=== PATIENT | male | born 1960 | race Caucasian/White ===

== ENCOUNTER 2019-04-18 17:38 | Inpatient (IN) | payer MEDICAID ==
[~2019-04-18] VITALS: Ht 162.6 cm; Wt 63.5 kg
[2019-04-18 18:14] LABS: BASOPHILS 0.4 % (0-2); EOSINOPHILS 2.4 % (0-7); HEMATOCRIT 43.6 % (42.0-54.0); HEMOGLOBIN 15.1 g/dL (13.5-17.5); IMMATURE GRANULOCYTES 0.4 % (0-5); LYMPHOCYTES 22.2 % (15-50); MCH 31.1 pg (26.0-34.0); MCHC 34.6 g/dL (31.0-37.0); MCV 89.7 fL (80.0-100.0); MEAN PLATELET VOLUME 9.5 fL (7.4-10.4); MONOCYTES 10.1 % (2-11); NEUTROPHILS 64.5 % (40-80); PLATELET COUNT 308 10x3/uL (130-400); RBC 4.86 10x6/uL (4.20-6.10); RDW 13.3 % (11.5-14.5); WBC 7.8 10x3/uL (4.8-10.8)
--- NOTE | 2019-04-18 18:20 | NUR ---
PATIENT GIVEN A URINAL; STATES, "I AM NOT GOING TO BE ABLE TO GO RIGHT NOW."
[2019-04-18 18:35] LABS: APPEARANCE CLEAR (CLEAR); BILIRUBIN NEGATIVE (NEGATIVE); COLOR YELLOW (YELLOW); GLUCOSE NEGATIVE (NEGATIVE); KETONE NEGATIVE (NEGATIVE); NITRITE NEGATIVE (NEGATIVE); PROTEIN NEGATIVE (NEGATIVE); UROBILINOGEN NORMAL (NORMAL)
[2019-04-18 18:40] LABS: ALBUMIN 3.4 g/dL (3.4-5.0); ALKALINE PHOSPHATASE 89 U/L (46-116); ALT (SGPT) 17 U/L (10-68); AMYLASE - SERUM 200 U/L (25-115); BILIRUBIN - TOTAL 0.27 mg/dL (0.2-1.3); CALC OSMOLALITY 281 mosm/kg (275-300); CALCIUM 9.3 mg/dL (8.5-10.1); CARBON DIOXIDE 26.8 mmol/L (21.0-32.0); CHLORIDE - SERUM 106 mmol/L (98-107); GLUCOSE 95 mg/dL (74-106); LIPASE 1179 U/L (73-393); POTASSIUM - SERUM 3.9 mmol/L (3.5-5.1); SODIUM 141 mmol/L (136-145); UREA NITROGEN 14 mg/dL (7-18); eGFR NON AFRICAN AMERICAN 82 mL/min (90-120)
[2019-04-18 18:47] VITALS: BP 127/83
--- NOTE | 2019-04-18 19:26 | NUR ---
PT WANTED TO ADD CONTACT TO CHART: ROOMMATE PEYMAN [place]. PH [phone].
--- NOTE | 2019-04-18 19:41 | NUR ---
PT C/O PAIN TO IV SITE IN LEFT FOREARM WHEN FLUSHED BY CT STAFF. IV RECHECKED AND PATENT, HOWEVER, PT C/O PAIN WHEN RAPIDLY FLUSHED. SECOND IV ESTABLISHED IN RIGHT FOREARM FOR CT SCAN.
[2019-04-18 21:07] VITALS: BP 106/81
--- NOTE | 2019-04-18 21:33 | NUR ---
PT ARRIVED ON UNIT VIA WHEELCHAIR ESCORTED BY ADRI LEVY FROM ER. ASSISTED PT IN PUTTING ON A GOWN AND POSITIONED IN BED FOR COMFORT WITH A WARM BLANKET.
--- NOTE | 2019-04-18 21:45 | NUR ---
TELEMETRY PLACED ON PT PER ORDER...READING 46 SR AT THIS TIME.
[2019-04-18 22:22] VITALS: BP 120/70; BMI 24.0
--- NOTE | 2019-04-18 22:40 | NUR ---
ADMISSION ASSESSMENT AND HISTORY COMPLETE.
[2019-04-19 01:48] VITALS: BP 96/53
[2019-04-19 05:24] VITALS: BP 115/61
[2019-04-19 05:43] LABS: BASOPHILS 0.4 % (0-2); EOSINOPHILS 2.5 % (0-7); HEMATOCRIT 39.9 % (42.0-54.0); HEMOGLOBIN 13.3 g/dL (13.5-17.5); IMMATURE GRANULOCYTES 0.1 % (0-5); LYMPHOCYTES 21.2 % (15-50); MCH 30.2 pg (26.0-34.0); MCHC 33.3 g/dL (31.0-37.0); MCV 90.7 fL (80.0-100.0); MEAN PLATELET VOLUME 9.6 fL (7.4-10.4); MONOCYTES 10.1 % (2-11); NEUTROPHILS 65.7 % (40-80); PLATELET COUNT 283 10x3/uL (130-400); RDW 13.5 % (11.5-14.5); WBC 7.9 10x3/uL (4.8-10.8)
[2019-04-19 05:59] LABS: ALBUMIN 2.8 g/dL (3.4-5.0); ALKALINE PHOSPHATASE 70 U/L (46-116); ALT (SGPT) 15 U/L (10-68); CALC OSMOLALITY 282 mosm/kg (275-300); CALCIUM 8.1 mg/dL (8.5-10.1); CARBON DIOXIDE 26.5 mmol/L (21.0-32.0); CHLORIDE - SERUM 110 mmol/L (98-107); GLUCOSE 89 mg/dL (74-106); PHOSPHOROUS 3.1 mg/dL (2.5-4.9); POTASSIUM - SERUM 4.1 mmol/L (3.5-5.1); PROTEIN - SERUM 5.7 g/dL (6.4-8.2); SODIUM 142 mmol/L (136-145); UREA NITROGEN 14 mg/dL (7-18); eGFR NON AFRICAN AMERICAN 82 mL/min (90-120)
[2019-04-19 07:59] VITALS: BP 118/67
--- NOTE | 2019-04-19 09:25 | NUR ---
PT REQUESTED FOOD THIS MORNING, ADVISED HE IS ON CLEAR LIQUID AND WILL ASK DR WHEN ROUNDS ARE MADE, GAVE PT SPRITE AND BEEF BROTH, CONTINUE WITH PLAN OF CARE
[2019-04-19 10:20] LABS: AMYLASE - SERUM 141 U/L (25-115); LIPASE 543 U/L (73-393)
--- NOTE | 2019-04-19 12:00 | NUR ---
LYING IN BED,WITHOUT DISTRESS.CALL LIGHT IN REACH
[2019-04-19 14:43] VITALS: Ht 162.6 cm; Wt 63.5 kg
[2019-04-19 15:55] VITALS: BP 129/55
[2019-04-19 22:28] VITALS: BP 99/50
[2019-04-20] VITALS: BP 124/71
[2019-04-20 06:09] LABS: BASOPHILS 0.4 % (0-2); EOSINOPHILS 2.3 % (0-7); HEMATOCRIT 40.3 % (42.0-54.0); HEMOGLOBIN 13.3 g/dL (13.5-17.5); IMMATURE GRANULOCYTES 0.1 % (0-5); LYMPHOCYTES 19.9 % (15-50); MCH 29.8 pg (26.0-34.0); MCV 90.4 fL (80.0-100.0); MEAN PLATELET VOLUME 9.9 fL (7.4-10.4); MONOCYTES 9.9 % (2-11); NEUTROPHILS 67.4 % (40-80); PLATELET COUNT 270 10x3/uL (130-400); RBC 4.46 10x6/uL (4.20-6.10); RDW 13.4 % (11.5-14.5); WBC 8.3 10x3/uL (4.8-10.8)
[2019-04-20 06:13] VITALS: BP 120/72
[2019-04-20 06:31] LABS: ALBUMIN 2.9 g/dL (3.4-5.0); ALKALINE PHOSPHATASE 73 U/L (46-116); ALT (SGPT) 16 U/L (10-68); AMYLASE - SERUM 116 U/L (25-115); BILIRUBIN - TOTAL 0.44 mg/dL (0.2-1.3); CALC OSMOLALITY 282 mosm/kg (275-300); CALCIUM 8.8 mg/dL (8.5-10.1); CARBON DIOXIDE 27.4 mmol/L (21.0-32.0); CHLORIDE - SERUM 109 mmol/L (98-107); CREATININE - SERUM 0.8 mg/dL (0.6-1.3); GLUCOSE 82 mg/dL (74-106); LIPASE 485 U/L (73-393); POTASSIUM - SERUM 4.1 mmol/L (3.5-5.1); PROTEIN - SERUM 5.5 g/dL (6.4-8.2); SODIUM 143 mmol/L (136-145); eGFR NON AFRICAN AMERICAN > 90 mL/min (90-120)
[2019-04-20 06:32] LABS: UREA NITROGEN 10 mg/dL (7-18)
--- NOTE | 2019-04-20 07:08 | NUR ---
PT IS RESTING IN BED WITH EYES CLOSED. RESPIRATIONS ARE EVEN AND UNLABORED. PT IS AAO X 4 UPON AROUSAL. PT IS EASILY AROUSED WITH VERBAL STIMULATION. PT DENIES PRESENCE OF PAIN. PT MISSY PRESENCE OF N/V. PIV TO RIGHT FA IS INFUSING WITHOUT DIFFICULTY. PIV TO LEFT FA IS SL. BED IS IN THE LOWEST POSITION. CALL LIGHT AND BEDSIDE TABLE ARE WITHIN REACH. SIDE RAILS X 2. PT DENIES FURTHER NEEDS. WILL CONT TO MONITOR.
[2019-04-20 08:10] LABS: HEPATITIS C ANTIBODY <0.1 S/CO RAT (0.0-0.9)
[2019-04-20 08:55] VITALS: BP 161/75
[2019-04-20] MEDS ORDERED: Nicoderm [PBKC] TRANSDERM (09:31)
--- NOTE | 2019-04-20 09:59 | MORECARE ---
CASE MANAGEMENT DISCHARGE SUMMARY PATIENT: JUAN JOSE ESPINAL UNIT: [id number] ADM DATE: 04/18/19 AGE: 59 : 64 SEX: M ROOM/BED: D.2226 AUTHOR: TRISTIN HAYS PHYSICIAN: REFERRING PHYSICIAN: CAYETANO ANDREW MD DATE OF SERVICE: 04/20/19 Discharge Plan Patient Name: JUAN JOSE ESPINAL Facility: [facility]:[place] : 1960 Planned Disposition: Home Anticipated Discharge Date: 04/20/19 Discharge Date: Expected LOS: 2 Initial Reviewer: [email or web address] Initial Review Date: 04/20/2019 Generated: 04/20/19 10:59 am Patient Name: JUAN JOSE ESPINAL Page 14011 at 0959 All edits/amendments must be made on the electronic document DICTATION DATE: 04/20/19958 REAMING MACHINE TENDER: LYLA 04/20/19958 RPT#: [id number] DC DATE: STATUS: ADM IN [facility] [address] [place] [address] END OF REPORT
--- NOTE | 2019-04-20 10:06 | MORECARE ---
CASE MANAGEMENT DISCHARGE SUMMARY PATIENT: JUAN JOSE ESPINAL UNIT: [id number] ADM DATE: 04/18/19 AGE: 59 : 64 SEX: M ROOM/BED: D.2226 AUTHOR: TRISTIN HAYS PHYSICIAN: REFERRING PHYSICIAN: CAYETANO ANDREW MD DATE OF SERVICE: 04/20/19 Discharge Plan Patient Name: JUAN JOSE ESPINAL Facility: [facility]:[place] : 1960 Planned Disposition: Home Anticipated Discharge Date: 04/20/19 Discharge Date: Expected LOS: 2 Initial Reviewer: [email or web address] Initial Review Date: 04/20/2019 Generated: 04/20/19 11:06 am Comments DCP- Discharge Planning Updated by [email or web address]: Astrid Covarrubias on 04/20/19 9:[address] Patient Name: JUAN JOSE ESPINAL Admission Status: ER Accout number: [id number] Admission Date: 04-18-2019 : 1960 Admission Diagnosis:ACUTE PANCREATITIS WITHOUT NECROSIS OR INFECTION, UNSP Attending: CAYETANO ANDREW Current LOS: 2 Anticipated DC Date: 04-20-2019 Planned Disposition: Home Primary Insurance: [facility] [employer]IONS [facility] Discharge Planning Comments: CM met with patient to complete initial dc planning assessment. CM educated patient on the CM role and verbal consent given by patient to complete assessment. Patient lives at home with room mates. At discharge patient plans to return and feels this is a safe discharge. CM discussed availability of home health, rehab services, and medical equipment. Patient denied known discharge needs at this time. He states one of his room mates (Radha) will take him home on discharge. I did give him the number for connect care to have him sign up with a PCP. No needs identified at this time. CM will continue to follow and will assist as needed with dc plans/needs. Performance Improvement Director: Astrid Covarrubias DCPIA - Discharge Planning Initial Assessment Updated by [email or web address]: Astrid Covarrubias on 04/20/19 10:00 am * Is the patient Alert and Oriented? Yes * PCP No PCP * Pharmacy [facility] [address] * Preadmission Environment Home with Family * ADLs Independent * Equipment None * List name and contact numbers for known caregivers / representatives who currently or will assist patient after discharge: Radha - no number given * Verbal permission to speak to the caregivers and representatives has been obtained from the patient. N/A * Community resources currently utilized None * Additional services required to return to the preadmission environment? No * Can the patient safely return to the preadmission environment? Yes * Has this patient been hospitalized within the prior 30 days at any hospital? No Last DP export: 04/20/19 8:59 a Patient Name: JUAN JOSE ESPINAL Page 67971 at 1006 All edits/amendments must be made on the electronic document DICTATION DATE: 04/20/19 1006 DISCHARGING MACHINE OPERATOR: LYLA 04/20/19 1006 RPT#: [id number] DC DATE: STATUS: ADM IN [facility] [address] [place] [address] END OF REPORT
[2019-04-20 12:15] VITALS: BP 127/77
--- NOTE | 2019-04-20 12:28 | NUR ---
ALL DISCHARGE INSTRUCTIONS COVERED WITH PT. PT DENIES FURTHER QUESTIONS/CONCERNS. ALL DISCHARGE PAPERS SIGNED. PIV TO LEFT FA REMOVED WITH CATHETER TIP INTACT. DRESSING APPLIED. PIV TO RIGHT FA REMOVED WITH CATHETER TIP INTACT. DRESSING APPLIED. PT DENIES FURTHER QUESTIONS/CONCERNS/NEEDS AT THIS TIME. PT TO NOTIFY NURSE WHEN READY FOR TRANSPORT OUT OF ROOM.
--- NOTE | 2019-04-20 13:16 | NUR ---
PT TRANPOSRTED FROM ROOM VIA WHEELCHAIR. PT DENIES PRESENCE OF QUESTIONS/CONCERNS/NEEDS.
--- NOTE | 2019-04-21 16:41 | MORECARE ---
CASE MANAGEMENT DISCHARGE SUMMARY PATIENT: JUAN JOSE ESPINAL UNIT: [id number] ADM DATE: 04/18/19 AGE: 59 : 64 SEX: M ROOM/BED: D.2226 AUTHOR: TRISTIN HAYS PHYSICIAN: REFERRING PHYSICIAN: CAYETANO ANDREW MD DATE OF SERVICE: 04/21/19 Discharge Plan Patient Name: JUAN JOSE ESPINAL Facility: [facility]:[place] : 1960 Planned Disposition: Home Anticipated Discharge Date: 04/20/19 Discharge Date: 04/20/2019 Expected LOS: 2 Initial Reviewer: [email or web address] Initial Review Date: 04/20/2019 Generated: 04/21/19 5:41 pm Comments DCP- Discharge Planning Updated by [email or web address]: Astrid Covarrubias on 04/20/19 9:[address] Patient Name: JUAN JOSE ESPINAL Admission Status: ER Accout number: [id number] Admission Date: 04-18-2019 : 1960 Admission Diagnosis:ACUTE PANCREATITIS WITHOUT NECROSIS OR INFECTION, UNSP Attending: CAYETANO ANDREW Current LOS: 2 Anticipated DC Date: 04-20-2019 Planned Disposition: Home Primary Insurance: [place] [employer] [facility] Discharge Planning Comments: CM met with patient to complete initial dc planning assessment. CM educated patient on the CM role and verbal consent given by patient to complete assessment. Patient lives at home with room mates. At discharge patient plans to return and feels this is a safe discharge. CM discussed availability of home health, rehab services, and medical equipment. Patient denied known discharge needs at this time. He states one of his room mates (Radha) will take him home on discharge. I did give him the number for connect care to have him sign up with a PCP. No needs identified at this time. CM will continue to follow and will assist as needed with dc plans/needs. Roving Or Yarn Color Checker: Astrid Covarrubias DCPIA - Discharge Planning Initial Assessment Updated by [email or web address]: Astrid Covarrubias on 04/20/19 10:00 am * Is the patient Alert and Oriented? Yes * PCP No PCP * Pharmacy [facility] [address] * Preadmission Environment Home with Family * ADLs Independent * Equipment None * List name and contact numbers for known caregivers / representatives who currently or will assist patient after discharge: Radha - no number given * Verbal permission to speak to the caregivers and representatives has been obtained from the patient. N/A * Community resources currently utilized None * Additional services required to return to the preadmission environment? No * Can the patient safely return to the preadmission environment? Yes * Has this patient been hospitalized within the prior 30 days at any hospital? No Last DP export: 04/20/19 9:06 a Patient Name: JUAN JOSE ESPINAL Page 56773 at 1641 All edits/amendments must be made on the electronic document DICTATION DATE: 04/21/191640 SALES AND SERVICE AGENT: LYLA 04/21/191640 RPT#: [id number] DC DATE:04/20/19 STATUS: DIS IN [facility] [address] [place] [address] END OF REPORT
== END 2019-04-20 13:17 | disposition home or self-care (01) | DRG 439 ==
LOC: D.ER 17:38 → D.MS 21:07
PROVIDERS: Family Medicine; ADMIT Internal Medicine Nephrology; ATTEND Internal Medicine Nephrology
DX: K85.90 Acute pancreatitis without necrosis or infection, unspecified (principal); F17.203 Nicotine dependence unspecified, with withdrawal; E86.0 Dehydration; G40.909 Epilepsy, unspecified, not intractable, without status epilepticus; D50.9 Iron deficiency anemia, unspecified; E83.51 Hypocalcemia